=== PATIENT | male | born 1950 | race Caucasian/White ===

== ENCOUNTER 2016-11-16 10:30 | Inpatient (IN) | payer MEDICARE ==
[2017-01-22] MEDS ORDERED: Sodium Chloride 0.9% 10 ML Syringe FLUSH PRN (07:00)
[2017-01-22] MEDS ORDERED: Lidocaine 1%/Sod Bicarbonate in NS 8.4% 1 ML Syringe PRN (07:00)
--- NOTE | 2017-01-22 07:40 | PCM.PREANE ---
Preanesthetic Assessment - Anesthesia/Transfusion/Family Hx Anesthesia History: Prior Anesthesia Without Reaction Family History of Anesthesia Reaction: No Transfusion History: No Prior Transfusion(s) Type of Transfusion Reactions: Reports: Unknown - Review of Systems General: No Symptoms Pulmonary: Other (quit smoking 2014, uses smokelss tobacco, last today at 0700) Cardiovascular: No Symptoms Gastrointestinal: No Symptoms Neurological: No Symptoms Other: Reports: None (drinks 5-6 beers per day) - Physical Assessment NPO Status Date: 01/21/17 NPO Status Time: 18:00 Pulse: 74 O2 Sat by Pulse Oximetry: 94 Respiratory Rate: 16 Blood Pressure: 180/87 Temperature: 35.9 C Height: 1.63 m Weight: 63 kg ASA Class: 2 Mental Status: Alert & Oriented x3 Airway Class: Mallampati = 2 Dentition: Reports: Edentulous, Caries (2 teeth lower left, very decayed patient states that they are tight) Thyro-Mental Finger Breadths: 3 Mouth Opening Finger Breadths: 3 ROM/Head Extension: Full Lungs: Clear to Auscultation, Wheezing (wheezing heard initially left upper lobe , resolved on second assessment, will order nebulizer) Cardiovascular: Regular Rate, Regular Rhythm - Lab Values: Laboratory Last Values MRSA (PCR) Negative 01/17/17 15:35 - Allergies Allergies/Adverse Reactions: Allergies Allergy/AdvReac Type Severity Reaction Status Date / Time No Known Allergies Allergy Verified 01/19/17 10:35 - Blood Blood Available: No Product(s) Available: None - Anesthesia Plan Beta Ketan: Metoprolol Med Last Dose Date: 01/22/17 Med Last Dose Time: 04:00 - Acknowledgements Anesthesia Type Planned: Spinal Pt an Appropriate Candidate for the Planned Anesthesia: Yes Alternatives and Risks of Anesthesia Discussed w Pt/Guardian: Yes Pt/Guardian Understands and Agrees with Anesthesia Plan: Yes PreAnesthesia Questionnaire HEENT History: Reports: Impaired Vision, Other (See Below) Other HEENT History: wears glasses Cardiovascular History: Reports: Hypertension Respiratory History: Reports: None Gastrointestinal History: Reports: None Genitourinary History: Reports: None 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 Musculoskeletal History: Reports: None Neurological History: Reports: None Psychiatric History: Reports: None Endocrine/Metabolic History: Reports: None Hematologic History: Reports: None Immunologic History: Reports: None Oncologic (Cancer) History: Reports: None Dermatologic History: Reports: None - Past Surgical History Head Surgeries/Procedures: Reports: None Respiratory Surgical History: Reports: None GI Surgical History: Reports: None Female Surgical History: Reports: None Endocrine Surgical History: Reports: None Neurological Surgical History: Reports: None Musculoskeletal Surgical History: Reports: Other (See Below) Other Musculoskeletal Surgeries/Procedures:: L hip fracture with pinning, R arm fracture with pins Oncologic Surgical History: Reports: None Dermatological Surgical History: Reports: None - SUBSTANCE USE Smoking Status *Q: Former Smoker Days Per Week of Alcohol Use: 7 Number of Drinks Per Day: 6 Total Drinks Per Week: 42 Recreational Drug Use History: No - HOME MEDS Home Medications: Home Meds Metoprolol Succinate 100 mg PO DAILY 01/19/17 [History] amLODIPine [Norvasc] 5 mg PO DAILY 01/19/17 [History] - CURRENT (IN HOUSE) MEDS Current Meds: Current Medications Morphine Sulfate 8 mg/Epinephrine HCl 0.3 mg/Cefuroxime Sodium 750 mg/Ketorolac Tromethamine 30 mg/Sodium Chloride 27.9 ml 0 mg .XX ONETIME ONE Stop: 01/22/17 08:46 Lactated Ringer's (Ringers, Lactated) 1,000 mls @ 125 mls/hr IV ASDIRECTED ANABELL Stop: 01/22/17 23:00 Lidocaine/Sodium Bicarbonate (Buffered Lidocaine 1% In Ns 8.4%) 0.25 ml .XX ONETIME PRN PRN Reason: Prior to IV Start Stop: 01/22/17 18:00 Sodium Chloride (Saline Flush) 10 ml FLUSH ASDIRECTED PRN PRN Reason: Keep Vein Open Stop: 01/23/17 18:00 Discontinued Medications Bupivacaine HCl (Marcaine 0.25%) Confirm Administered Dose 30 ml .ROUTE .STK- MED ONE Stop: 01/22/17 07:23 Cefazolin Sodium (Ancef) Confirm Administered Dose 2 gm .ROUTE .STK-MED ONE Stop: 01/22/17 07:23 Iodine (Iodine 2% Mild Tincture) Confirm Administered Dose 30 ml .ROUTE .STK- MED ONE Stop: 01/22/17 07:23 Tranexamic Acid (Cyklokapron) Confirm Administered Dose 1,000 mg .ROUTE .STK- MED ONE Stop: 01/22/17 07:23
[2017-01-22] MEDS ORDERED: Albuterol 0.042% 1.25 MG/3 ML Neb Soln NEB ONE (07:48)
[2017-01-22] MEDS ORDERED: Midazolam 1 MG/ML 2 ML SDV ONE (08:00)
[2017-01-22] MEDS ORDERED: fentaNYL 250 MCG/5 ML SDV ONE (08:00)
[2017-01-22] MEDS: Lactated Ringers 1,000 ML IV SCH ×2 (08:00→11:16)
[2017-01-22] MEDS ORDERED: Propofol 200 MG/20 ML SDV ONE ×3 (08:00→10:19)
[2017-01-22] MEDS ORDERED: ceFAZolin 1 GM Vial ONE (08:00)
[2017-01-22] MEDS ORDERED: fentaNYL 100 MCG/2 ML SDV ONE (08:10)
[2017-01-22] MEDS ORDERED: Morphine PF 10 MG/10 ML SDV ONE (08:12)
[2017-01-22] MEDS ORDERED: Lactated Ringers 1,000 ML ONE ×2 (09:58→11:14)
[2017-01-22] MEDS: Bupivacaine 0.25% 30 ML SDV ONE ×2 (10:14→10:48)
[2017-01-22] MEDS: ceFAZolin 1 GM Vial ONE ×2 (10:15→10:44)
[2017-01-22] MEDS: Iodine/Sodium Iodide 2% Tincture 30 ML Bottle ONE ×2 (10:15→10:37)
[2017-01-22] MEDS: Morphine 8 MG, EPINEPHrine 0.3 MG, Cefuroxime 750 MG, Ketorolac 30 MG, Sodium Chloride ... ONE ×10 (10:16→10:46)
[2017-01-22] MEDS ORDERED: fentaNYL 100 MCG/2 ML SDV IVPUSH PRN (10:23)
[2017-01-22] MEDS ORDERED: Ondansetron 4 MG/2 ML SDV IVPUSH PRN (10:23)
--- NOTE | 2017-01-22 10:43 | PCM.OPNOTE ---
[id number] hip arthroplasty with deep hardware removal Pre Op Diagnosis: left hip osteoarthrosis status post previous left hip fracture Post-Op Diagnosis: Same Anesthesia Technique: Local, MAC, Spinal Primary Surgeon: Chaparro Lopez Anesthesia Provider: Dorene Tyler Technical Director: Bindu Jo Technical Director: Kellen Cervantes Complications: None Condition: Good
[2017-01-22] MEDS ORDERED: Sennosides 8.6 MG Tab PO PRN (11:00)
[2017-01-22] MEDS ORDERED: Bisacodyl 5 MG Tab PO PRN (11:00)
[2017-01-22] MEDS ORDERED: HYDROmorphone 0.5 MG/0.5 ML Syringe IVPUSH PRN (11:00)
[2017-01-22] MEDS ORDERED: Magnesium Hydroxide 400 MG/5 ML Susp 30 ML Cup PO PRN (11:00)
[2017-01-22] MEDS ORDERED: Morphine 2 MG/ML Syringe IVPUSH PRN (11:00)
[2017-01-22] MEDS ORDERED: Naloxone 0.4 MG/ML SDV IVPUSH PRN (11:00)
--- NOTE | 2017-01-22 11:27 | PCM.POSTAN ---
POST ANESTHESIA ASSESSMENT - MENTAL STATUS Mental Status: Alert, Oriented - VITAL SIGNS Pulse Rate: 59 SaO2: 98 Resp Rate: 16 Blood Pressure: 136/74 Temperature: 97.4 C - RESPIRATORY Respiratory Status: Respiratory Rate WNL, Airway Patent, O2 Saturation Stable, Supplemental Oxygen - CARDIOVASCULAR CV Status: Pulse Rate WNL, Blood Pressure Stable - GASTROINTESTINAL GI Status: No Symptoms - PAIN Pain Score: 0 - POST OP HYDRATION Hydration Status: Adequate & Stable
--- NOTE | 2017-01-22 11:42 | CR ---
Pelvis and left hip: AP view of the pelvis was obtained as well as lateral view of the left hip. Comparison: No previous study. Recently placed left hip prosthesis is seen. Components are aligned. Soft tissue air is noted from the surgical procedure. Joint space within the right hip is maintained. Bony structures are osteopenic. Impression: 1. Satisfactory appearance of recently placed left hip prosthesis. Diagnostic code #2
--- NOTE | 2017-01-22 12:31 | PCM.CONS ---
H&P History of Present Illness - General Date of Service: 01/22/17 Admit Problem/Dx: Admission Diagnosis/Problem Admission Diagnosis/Problem Osteoarthritis of hip Source of Information: Patient, Old Records, Provider, RN Notes Reviewed History Limitations: Reports: Physical Impairment - History of Present Illness Initial Comments - Free Text/Narative: This is a 66-year-old, white male, with past medical history of HTN, Hx/o Left Hip Fracture Status Post Surgical Pinning, Chronic ETOH Use, Chronic Tobacco Product Use (He chews) and Osteopenia who underwent left hip hardware removal and left total knee arthroplasty post operative day zero. Patient is doing relatively well. Currently, his pain is controlled. He denies any acute issues. Medicine was consulted for postoperative care. Left Hip Pain Score (Numeric/FACES): 5 - Related Data Allergies/Adverse Reactions: Allergies Allergy/AdvReac Type Severity Reaction Status Date / Time No Known Allergies Allergy Verified 01/22/17 08:08 Home Medications: Home Meds Metoprolol Succinate 100 mg PO DAILY 01/19/17 [History] amLODIPine [Norvasc] 5 mg PO DAILY 01/19/17 [History] Past Medical History HEENT History: Reports: Impaired Vision, Other (See Below) Other HEENT History: wears glasses Cardiovascular History: Reports: Hypertension Respiratory History: Reports: None Gastrointestinal History: Reports: None Genitourinary History: Reports: None 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 Musculoskeletal History: Reports: None Neurological History: Reports: None Psychiatric History: Reports: None Endocrine/Metabolic History: Reports: None Hematologic History: Reports: None Immunologic History: Reports: None Oncologic (Cancer) History: Reports: None Dermatologic History: Reports: None - Infectious Disease History Infectious Disease History: Reports: None - Past Surgical History Head Surgeries/Procedures: Reports: None HEENT Surgical History: Reports: None Cardiovascular Surgical History: Reports: None Respiratory Surgical History: Reports: None GI Surgical History: Reports: None Endocrine Surgical History: Reports: None Neurological Surgical History: Reports: None Musculoskeletal Surgical History: Reports: Other (See Below) Other Musculoskeletal Surgeries/Procedures:: L hip fracture with pinning, R arm fracture with pins Oncologic Surgical History: Reports: None Dermatological Surgical History: Reports: None Social & Family History - Tobacco Use Smoking Status *Q: Former Smoker Used Tobacco, but Quit: Yes Month Tobacco Last Used: 2014 Tobacco Use Comment: Patient last used chewing tobacco this morning at 0630. SENDY Catherine aware Second Hand Smoke Exposure: No - Caffeine Use Caffeine Use: Reports: Coffee, Soda - Alcohol Use Days Per Week of Alcohol Use: 7 Number of Drinks Per Day: 6 Total Drinks Per Week: 42 - Recreational Drug Use Recreational Drug Use: No H&P Review of Systems - Review of Systems: Review Of Systems: See Below General: Denies: Fever, Chills, Malaise, Weakness, Fatigue HEENT: Reports: No Symptoms Pulmonary: Denies: Shortness of Breath Cardiovascular: Denies: Chest Pain, Dyspnea on Exertion, Lightheadedness Gastrointestinal: Denies: Abdominal Pain, Decreased Appetite, Nausea, Vomiting Genitourinary: Reports: No Symptoms Musculoskeletal: Reports: No Symptoms, Neck Pain Skin: Denies: Cyanosis, Erythema, Wound Psychiatric: Denies: Depression, Anxiety, Hallucinations Neurological: Reports: Pre-Existing Deficit, Difficulty Walking, Gait Disturbance. Denies: Confusion, Weakness Hematologic/Lymphatic: Reports: No Symptoms Immunologic: Reports: No Symptoms Exam - Exam Exam: See Below - Vital Signs Vital Signs: Last Vital Signs Temp 36.2 C 01/22/17 12:12 Pulse 59 L 01/22/17 12:12 Resp 11 L 01/22/17 12:12 BP 130/69 01/22/17 12:12 Pulse Ox 91 L 01/22/17 12:12 Weight: 62.777 kg - Exam General: Alert, Oriented, Cooperative, Mild Distress HEENT: Conjunctiva Clear, EACs Clear, EOMI, Hearing Intact, Mucosa Moist & Silex , Nares Patent, Normal Nasal Septum, Posterior Pharynx Clear, Pupils Equal, Pupils Reactive, TMs Clear, Other (Poor Dentition) Neck: Supple, Trachea Midline, +2 Carotid Pulse wo Bruit Lungs: Clear to Auscultation, Normal Respiratory Effort Cardiovascular: Regular Rate, Regular Rhythm GI/Abdominal Exam: Normal Bowel Sounds, Soft, Non-Tender, No Organomegaly, No Distention, No Abnormal Bruit, No Mass (Male) Exam: Other (Indwelling thomas catheter) Rectal (Males) Exam: Deferred Back Exam: Normal Inspection, Decreased Range of Motion Extremities: Normal Inspection, Non-Tender, No Pedal Edema, Normal Capillary Refill, Other (limited due to abduction wedge). No: Normal Range of Motion Peripheral Pulses: 2+: Posterior Tibial (L), Posterior Tibial (R), Dorsalis Pedis (L), Dorsalis Pedis (R) Skin: Warm, Dry, Intact Neuro Extensive - Mental Status: Oriented x3, Normal Cognition, Memory Intact Neuro Extensive - Motor, Sensory, Reflexes: CN II-XII Intact (Limited due to current status), Abnormal Gait Psychiatric: Alert, Normal Affect, Normal Mood - Patient Data Lab Results Last 24 hrs: Laboratory Results - last 24 hr 01/22/17 Range/Units 07:50 Blood Type O POSITIVE Gel Antibody Screen Negative Consult PN Assessment/Plan POD#: 0 Procedures: Procedures DXA BONE DENSITY AXIAL (11/29/16) MR-STAPH DNA AMP PROBE (11/29/16) Problem List Initiated/Reviewed/Updated: Yes Plan: Assessment: Acute: Post-Operative Care State - Stable - Continue to monitor for hemodynamic instability S/p Removal of Hardware and Left Total Knee Arthroplasty - Stable - DVT and Pain Management as per primary team Hx/o Chronic Pain From Left Hip Hardware S/p Removal and TKA - Pain Management as per primary team Chronic: HTN Chronic ETOH Use, drinks 4-5 beers a day Tobacco Product Use, he chews Osteopenia Plan: He is clinically stable Routine AM labs Monitor for alcohol withdrawal, no need for prophylaxis at this time Nicotine Patch 21 mg daily Continue home meds PT/OT consult IS q2 awake Thank you for the opportunity to participate in the management of this patient Requesting Provider: Dr. Lopez Date Consult Requested: 01/22/17 Reason for Consult: Post-Operative Care Patient History Reviewed: Yes Admission H&P Reviewed: Yes Consult Result/Summary: Stable
--- NOTE | 2017-01-22 13:22 | OR ---
DATE OF OPERATION: 01/22/2017 SURGEON: Chaparro Lopez MD OPERATION PERFORMED: Conversion to left total hip arthroplasty status post left hip surgery with deep hardware removal. PREOPERATIVE DIAGNOSIS: Left hip osteoarthrosis status post previous left hip fracture. POSTOPERATIVE DIAGNOSIS: Left hip osteoarthrosis status post previous left hip fracture. ANESTHESIA: Local MAC with spinal. ANESTHESIA PROVIDER: Dr. Dorene Tyler ASSISTANTS: Bindu Jo PA-C and Kellen Cervantes LPN. ESTIMATED BLOOD LOSS: 250 mL. COMPLICATIONS: None. CONDITION: Stable. IMPLANTS: 1. Hannah size 52-mm Tritanium solid hemispherical cup. 2. Size 4 Accolade II Hannah stem. 3. Size D MDM components with 22.2 mm metal head +3. DESCRIPTION OF PROCEDURE: The patient was identified in the preop holding area. Proper site was marked and identified by the surgeon. The patient was taken back to the operating theater where after adequate anesthesia, the patient was placed in a right lateral decubitus position. All bony prominences were well padded. Pegs were well padded. The patient's gluteal fold was parallel to the floor. At this time, left hip was then sterilely prepped and draped in the usual sterile fashion. OR time-out was performed. The patient received 2 g of Ancef. Standard posterior incision was then made, taken down to the IT band and gluteal fascia. This was incised along the incisional length. There was noted to be a large amount of scar tissue where the previous 6.5 cannulated screws were. They were easily identified and with use of a 6.5 screwdriver, we were able to easily remove all 4 of the cannulated screws. The greater trochanter was found to be intact. At this time, short external rotators were identified and they were severely scarred secondary to the previous surgery. Takedown of the piriformis tendon and the short external rotators were then done all the way down to the level of lesser trochanter. The abductors were protected at this time. Hip was then dislocated. Neck cut guide was then placed and neck cut was completed. The patient's neck cut was found to be adequate. At this time, anterior and posterior acetabular retractors were placed. The patient was noted to have significant tight inferior capsule and removal of the pulvinar along with the anterior and posterior labrum was then done and completed at this time. Starting with a 46 reamer, I was able to ream up to a 52 for a 52 mm cup. The trial was found to have adequate fixation. A 52-mm Thurman titanium acetabular cup was then impacted into place in roughly 40 degrees of abduction and 10 to 20 degrees of anteversion. The D MDM liner was then impacted into place. Attention was turned to the femur. The femoral elevator was placed. A box chisel was used out laterally and starter awl was placed down the canal. The canal was noted to have significant overgrowth of the very robust calcar. At this time starting with a 0 broach, I was able to broach up to a size 4 which was found to be rotationally and vertically stable. At this time, the hip was reduced. The leg lengths were found to be a minor amount short, so at this time we did +3 and was found to have adequate baptist of leg length as well as offset. At this time, size 4 Accolade II stem was impacted into place along with the MDM components construct on the back table with a +3 neck sleeve. At this time, these were impacted onto the stem and the hip was then relocated, was found to be stable throughout range of motion with near equal leg lengths. 1 L dilute Betadine solution was then irrigated through the hip along with 3 L of pulse lavage irrigation with Ancef. Periarticular injection was then completed. One #5 Ethibond suture was used for closure of the capsule and short external rotators. A #2 barbed suture was used for closure of the IT band and gluteal fascia. A 2-0 Vicryl was used subcutaneously and a Prineo was used for the skin. The patient tolerated the procedure well and sent to PACU in stable condition. MMBARRETT /[id number]
[2017-01-22] MEDS: ceFAZolin 2 GM in Premix Bag 1 BAG IV SCH ×2 (16:31→23:21)
[2017-01-22] MEDS ORDERED: Metoprolol Tartrate 5 MG/5 ML SDV IVPUSH PRN (16:50)
[2017-01-22] MEDS ORDERED: hydrALAZINE 20 MG/ML SDV IVPUSH PRN (16:50)
[2017-01-22] MEDS ORDERED: LORazepam 2 MG/ML MDV IVPUSH PRN ×2 (16:50)
[2017-01-22] MEDS ORDERED: Nicotine 21 MG/24 Hr Patch TRDERM ONE (16:51)
[2017-01-22] MEDS ORDERED: Famotidine 20 MG Tab PO SCH (21:00)
[2017-01-22] MEDS: Acetaminophen/oxyCODONE 325-5 MG Tab PO PRN (21:05)
[2017-01-22] MEDS: Docusate Sodium 100 MG Cap PO SCH (21:07)
[2017-01-23] MEDS: Acetaminophen/oxyCODONE 325-5 MG Tab PO PRN ×3 (03:41→13:49)
[2017-01-23] MEDS ORDERED: Multivitamins,Therapeutic Tab PO SCH (07:00)
[2017-01-23] MEDS: ceFAZolin 2 GM in Premix Bag 1 BAG IV SCH (08:31)
[2017-01-23] MEDS: Docusate Sodium 100 MG Cap PO SCH (08:36)
[2017-01-23] MEDS ORDERED: amLODIPine 5 MG Tab PO SCH (09:00)
[2017-01-23] MEDS ORDERED: Metoprolol Succinate 50 MG Tab.ER PO SCH (09:00)
[2017-01-23] MEDS ORDERED: Nicotine 21 MG/24 Hr Patch TRDERM SCH (09:00)
[2017-01-23] MEDS ORDERED: REMOVE NICOTINE TRDERM SCH (09:00)
[2017-01-23] MEDS ORDERED: Aspirin 325 MG Tab.EC PO SCH (09:00)
[2017-01-23] MEDS ORDERED: Famotidine 20 MG Tab PO SCH (09:00)
[2017-01-23] MEDS ORDERED: Potassium Chloride/Sodium Chloride Tab PO SCH (09:45)
--- NOTE | 2017-01-23 09:47 | PCM.CONSN ---
- General Info Date of Service: 01/23/17 Admission Dx/Problem (Free Text): Admission Diagnosis/Problem Admission Diagnosis/Problem Osteoarthritis of hip POD #[address] Lopez Doing well, pain controlled. Tolerating diet without nausea or concerns. Denies alcohol withdrawl symptoms this morning. No dizziness or confusion Is anxious for discharge home later today Functional Status: Reports: Pain Controlled, Tolerating Diet, Ambulating, Urinating. Denies: New Symptoms - Review of Systems General: Reports: No Symptoms HEENT: Reports: No Symptoms Pulmonary: Reports: No Symptoms Cardiovascular: Reports: No Symptoms Gastrointestinal: Reports: No Symptoms Genitourinary: Reports: No Symptoms Musculoskeletal: Reports: Leg Pain Skin: Reports: No Symptoms Neurological: Reports: No Symptoms Psychiatric: Reports: No Symptoms - Patient Data Vitals - Most Recent: Last Vital Signs Temp 98.9 F 01/23/17 09:00 Pulse 78 01/23/17 09:00 Resp 16 01/23/17 09:00 BP 121/99 H 01/23/17 09:00 Pulse Ox 93 L 01/23/17 09:00 Weight - Most Recent: 138 lb 6.4 oz I&O - Last 24 Hours: Intake & Output 01/22/17 01/23/17 01/23/17 22:59 06:59 14:59 Intake Total 1360 250 Output Total 455 0 Balance 905 250 Lab Results Last 24 Hours: Laboratory Results - last 24 hr 01/22/17 01/23/17 01/23/17 Range/Units 07:50 06:00 06:00 WBC 10.64 H (4.23-9.07) K/mm3 RBC 3.57 L (4.63-6.08) M/mm3 Hgb 11.3 L (13.7-17.5) gm/L Hct 33.3 L (40.1-51.0) % MCV 93.3 H (79.0-92.2) fl MCH 31.7 (25.7-32.2) pg MCHC 33.9 (32.2-35.5) g/dl RDW Std Deviation 47.3 H (35.1-43.9) fL Plt Count 340 H (163-337) K/mm3 MPV 10.3 (9.4-12.3) fl Neut % (Auto) 63.0 (34.0-67.9) % Lymph % (Auto) 24.6 (21.8-53.1) % [place] % (Auto) 9.8 (5.3-12.2) % Eos % (Auto) 2.1 (0.8-7.0) Baso % (Auto) 0.2 (0.1-1.2) % Neut # (Auto) 6.71 H (1.78-5.38) K/mm3 Lymph # (Auto) 2.62 (1.32-3.57) K/mm3 [place] # (Auto) 1.04 H (0.30-0.82) K/mm3 Eos # (Auto) 0.22 (0.04-0.54) K/mm3 Baso # (Auto) 0.02 (0.01-0.08) K/mm3 Sodium 129 L (136-145) mEq/L Potassium 4.3 (3.5-5.1) mEq/L Chloride 93 L (98-107) mEq/L Carbon Dioxide 31 (21-32) mEq/L Anion Gap 9.3 (5-15) BUN 20 H (7-18) mg/dL Creatinine 1.5 H (0.7-1.3) mg/dL Est Cr Clr Drug Dosing 40.01 mL/min Estimated GFR (MDRD) 47 (>60) mL/min BUN/Creatinine Ratio 13.3 L (14-18) Glucose 115 (80-115) mg/dL Calcium 9.0 (8.5-10.1) mg/dL Total Bilirubin 1.5 H (0.2-1.0) mg/dL AST 92 H (15-37) U/L ALT 43 (16-63) U/L Alkaline Phosphatase 131 H (46-116) U/L Total Protein 7.2 (6.4-8.2) g/dl Albumin 3.2 L (3.4-5.0) g/dl Globulin 4.0 gm/dL Albumin/Globulin Ratio 0.8 L (1-2) Blood Type O POSITIVE Gel Antibody Screen Negative Med Orders - Current: Current Medications Amlodipine Besylate (Norvasc) 5 mg PO DAILY [facility] Last Admin: 01/23/17 08:36 Dose: 5 mg Aspirin (Ecotrin) 325 mg PO BID [facility] Last Admin: 01/23/17 08:36 Dose: 325 mg Bisacodyl (Dulcolax) 5 mg PO DAILY PRN PRN Reason: Constipation Docusate Sodium (Colace) 100 mg PO BID [facility] Last Admin: 01/23/17 08:36 Dose: 100 mg Famotidine (Pepcid) 20 mg PO DAILY [facility] Last Admin: 01/23/17 08:32 Dose: 20 mg Hydralazine HCl (Apresoline) 20 mg IVPUSH Q4H PRN PRN Reason: Hypertension Lorazepam (Ativan) 2 mg IVPUSH Q4H PRN PRN Reason: Seizures Lorazepam (Ativan) 0 mg IVPUSH Q4H PRN; Protocol PRN Reason: Withdrawal Symptoms Magnesium Hydroxide (Milk Of Magnesia) 30 ml PO BID PRN PRN Reason: Constipation Metoprolol Succinate (Toprol Xl) 100 mg PO DAILY [facility] Last Admin: 01/23/17 08:32 Dose: 100 mg Metoprolol Tartrate (Lopressor) 5 mg IVPUSH Q4H PRN PRN Reason: Tachycardia Miscellaneous Information (Remove Patch) 0 ea TRDERM DAILY [facility] Last Admin: 01/23/17 08:36 Dose: 1 ea Morphine Sulfate (Morphine) 2 mg IVPUSH Q2H PRN PRN Reason: Breakthrough Pain Multivitamins (Thera) 1 each PO WITHBREAKFAST [facility] Last Admin: 01/23/17 06:00 Dose: 1 each Nicotine (Habitrol) 21 mg TRDERM DAILY [facility] Last Admin: 01/23/17 08:32 Dose: 21 mg Oral Electrolytes (Thermotabs) 1 each PO TID [facility] Oxycodone/Acetaminophen (Percocet 325-5 Mg) 1 - 2 tab PO Q4H PRN PRN Reason: Pain Last Admin: 01/23/17 08:56 Dose: 2 tab Senna (Senna) 8.6 mg PO BID PRN PRN Reason: Constipation Sodium Chloride (Saline Flush) 10 ml FLUSH ASDIRECTED PRN PRN Reason: Keep Vein Open Stop: 01/23/17 18:00 Discontinued Medications Albuterol (Proventil Neb Soln) 1.25 mg NEB ONETIME ONE Stop: 01/22/17 07:49 Last Admin: 01/22/17 08:19 Dose: 1.25 mg Bupivacaine HCl (Marcaine 0.25%) Confirm Administered Dose 30 ml .ROUTE .STK- MED ONE Stop: 01/22/17 07:23 Last Admin: 01/22/17 10:48 Dose: 30 ml Cefazolin Sodium (Ancef) Confirm Administered Dose 2 gm .ROUTE .STK-MED ONE Stop: 01/22/17 07:23 Last Admin: 01/22/17 10:44 Dose: 2 gm Cefazolin Sodium (Ancef) Confirm Administered Dose 2 gm .ROUTE .STK-MED ONE Stop: 01/22/17 08:01 Morphine Sulfate 8 mg/Epinephrine HCl 0.3 mg/Cefuroxime Sodium 750 mg/Ketorolac Tromethamine 30 mg/Sodium Chloride 27.9 ml 0 mg .XX ONETIME ONE Stop: 01/22/17 08:46 Last Admin: 01/22/17 10:46 Dose: 788.3 mg Famotidine (Pepcid) 20 mg PO BID [facility] Last Admin: 01/22/17 21:07 Dose: 20 mg Fentanyl (Sublimaze) Confirm Administered Dose 250 mcg .ROUTE .STK-MED ONE Stop: 01/22/17 08:01 Fentanyl (Sublimaze) Confirm Administered Dose 100 mcg .ROUTE .STK-MED ONE Stop: 01/22/17 08:11 Fentanyl (Sublimaze) 50 mcg IVPUSH Q5M PRN PRN Reason: pain Stop: 01/22/17 13:00 Hydromorphone HCl (Dilaudid) 0.5 mg IVPUSH Q15M PRN PRN Reason: Pain (severe 7-10) Stop: 01/22/17 11:16 Lactated Ringer's (Ringers, Lactated) 1,000 mls @ 125 mls/hr IV ASDIRECTED [facility] Stop: 01/22/17 23:00 Last Admin: 01/22/17 11:16 Dose: 125 mls/hr Cefazolin Sodium/Dextrose 2 gm (/ Premix) 50 mls @ 100 mls/hr IV Q8H [facility] Stop: 01/23/17 08:29 Last Admin: 01/23/17 08:31 Dose: 100 mls/hr Lactated Ringer's (Ringers, Lactated) Confirm Administered Dose 1,000 mls @ as directed .ROUTE .STK-MED ONE Stop: 01/22/17 09:59 Lactated Ringer's (Ringers, Lactated) Confirm Administered Dose 1,000 mls @ as directed .ROUTE .STK-MED ONE Stop: 01/22/17 11:15 Iodine (Iodine 2% Mild Tincture) Confirm Administered Dose 30 ml .ROUTE .STK- MED ONE Stop: 01/22/17 07:23 Last Admin: 01/22/17 10:37 Dose: 18 ml Lidocaine/Sodium Bicarbonate (Buffered Lidocaine 1% In Ns 8.4%) 0.25 ml .XX ONETIME PRN PRN Reason: Prior to IV Start Stop: 01/22/17 18:00 Last Admin: 01/22/17 08:00 Dose: 0.25 ml Midazolam HCl (Versed 1 Mg/Ml) Confirm Administered Dose 2 mg .ROUTE .STK-MED ONE Stop: 01/22/17 08:01 Morphine Sulfate (Duramorph Pf) Confirm Administered Dose 10 mg .ROUTE .STK-MED ONE Stop: 01/22/17 08:13 Naloxone HCl (Narcan) 0.1 mg IVPUSH Q5M PRN PRN Reason: Oversedation Stop: 01/22/17 11:16 Nicotine (Habitrol) 21 mg TRDERM ONETIME ONE Stop: 01/22/17 16:52 Last Admin: 01/22/17 17:17 Dose: 21 mg Ondansetron HCl (Zofran) 4 mg IVPUSH ONETIME PRN PRN Reason: Nausea/Vomiting Stop: 01/22/17 13:00 Propofol (Diprivan 20 Ml) Confirm Administered Dose 200 mg .ROUTE .STK-MED ONE Stop: 01/22/17 08:01 Propofol (Diprivan 20 Ml) Confirm Administered Dose 200 mg .ROUTE .STK-MED ONE Stop: 01/22/17 09:29 Propofol (Diprivan 20 Ml) Confirm Administered Dose 200 mg .ROUTE .STK-MED ONE Stop: 01/22/17 10:20 Tranexamic Acid (Cyklokapron) Confirm Administered Dose 1,000 mg .ROUTE .STK- MED ONE Stop: 01/22/17 07:23 Last Admin: 01/22/17 10:52 Dose: 1,000 mg - Exam Quality Assessment: DVT Prophylaxis General: Alert, Oriented, Cooperative, No Acute Distress HEENT: Pupils Equal, Pupils Reactive, EOMI, Mucous Membr. Moist/[place] Neck: Supple Lungs: Clear to Auscultation, Normal Respiratory Effort, Decreased Breath Sounds (bases), Wheezing (exp. scattered) Cardiovascular: Regular Rate, Regular Rhythm GI/Abdominal Exam: Normal Bowel Sounds, Soft, Non-Tender (Male) Exam: Deferred Extremities: Normal Inspection, No Pedal Edema Peripheral Pulses: 1+: Dorsalis Pedis (L), Dorsalis Pedis (R) Skin: Warm Wound/Incisions: Dressing Dry and Intact (to lt hip; distally CMS + ) Neurological: No New Focal Deficit Psy/Mental Status: Alert, Normal Affect, Normal Mood Consult PN Assessment/Plan POD#: 1 Procedures: Procedures DXA BONE DENSITY AXIAL (11/29/16) MR-STAPH DNA AMP PROBE (11/29/16) (1) S/P total hip arthroplasty SNOMED Code(s): 461299576159, 118649009545 Code(s): Z96.649 - PRESENCE OF UNSPECIFIED ARTIFICIAL HIP JOINT Priority: High Current Visit: Yes Qualifiers: Laterality: right Qualified Code(s): Z96.641 - Presence of right artificial hip joint (2) Osteoarthritis SNOMED Code(s): 665050932 Code(s): M19.90 - UNSPECIFIED OSTEOARTHRITIS, UNSPECIFIED SITE Priority: High Current Visit: Yes Qualifiers: Osteoarthritis location: hip Osteoarthritis type: unspecified Laterality : left Qualified Code(s): M16.12 - Unilateral primary osteoarthritis, left hip (3) HTN (hypertension) SNOMED Code(s): 50555677 Code(s): I10 - ESSENTIAL (PRIMARY) HYPERTENSION Priority: Medium Current Visit: No Qualifiers: Hypertension type: essential hypertension Qualified Code(s): I10 - Essential (primary) hypertension (4) Alcohol use disorder SNOMED Code(s): 43055810, 39703006 Code(s): F10.99 - ALCOHOL USE, UNSP WITH UNSPECIFIED ALCOHOL-INDUCED DISORDER Priority: High Current Visit: Yes (5) Tobacco use disorder SNOMED Code(s): 533337319, 023630322 Code(s): F17.200 - NICOTINE DEPENDENCE, UNSPECIFIED, UNCOMPLICATED Priority : Medium Current Visit: Yes (6) Osteopenia SNOMED Code(s): 823210612 Code(s): M85.80 - OTH DISRD OF BONE DENSITY AND STRUCTURE, UNSPECIFIED SITE Priority: Medium Current Visit: Yes Qualifiers: Osteopenia location: unspecified Qualified Code(s): M85.80 - Other specified disorders of bone density and structure, unspecified site (7) Renal insufficiency SNOMED Code(s): 042030663, 728995350 Code(s): N28.9 - DISORDER OF KIDNEY AND URETER, UNSPECIFIED Priority: Medium Current Visit: Yes (8) Elevated liver enzymes SNOMED Code(s): 162095720, 774690271 Code(s): R74.8 - ABNORMAL LEVELS OF OTHER SERUM ENZYMES Priority: Medium Current Visit: Yes Problem List Initiated/Reviewed/Updated: Yes My Orders Last 24 Hours: My Active Orders 01/23/17 09:45 Potassium Chloride/NaCl [Thermotabs] 1 each PO TID Plan: POD #1- Lt DIRK--revision, Dr. Lopez -Pain management and DVT prohylax per Primary Team- Ortho -PT/OT -IS/RT -Hgb stable at 11.3 Hyponatremia- 129 -Thermotabs TID today -Salt food Renal insufficiency- creatinine 1.5 today; stable from preop labs -Push fluids, alcohol avoidance -Recommend f/up with PCP as outpatient Elevated LFT's -Likely from chronic alcohol use, alcohol avoidance/cessation -Recommend f/up with PCP for recheck and further eval after discharge Chronic conditions -HTN- resume home meds- stable -Tobacco use- nicotine patch- recommend cessation -Alcohol use- recommend cessation- avoid using alcohol in conjunction with narcotic pain medications -Osteopenia Other: GI prophylax CM/SW for assist with DC planning- plans dc home today with family: OK for DC home today from Hospitalist standoint. Patient is Full Code Status.
--- NOTE | 2017-01-23 10:30 | PCM48HPAN ---
Post Anesthesia Note - EVALUATION WITHIN 48HRS OF ANESTHETIC Vital Signs in Normal Range: Yes Patient Participated in Evaluation: Yes Respiratory Function Stable: Yes (continues with pulse ox. ) Airway Patent: Yes Cardiovascular Function Stable: Yes Hydration Status Stable: Yes Pain Control Satisfactory: Yes Nausea and Vomiting Control Satisfactory: Yes Mental Status Recovered: Yes
[2017-01-23 12:09] VITALS: BP 116/78
--- NOTE | 2017-01-23 12:40 | PCM.SURGPN ---
- General Info Date of Service: 01/23/17 POD#: 1 Functional Status: Reports: Pain Controlled, Tolerating Diet, Ambulating, Urinating, Other (The pt feels prepared for discharge to home.) - Review of Systems General: Denies: Fever, Chills Musculoskeletal: Reports: Other (The pt progressed well with P.T.) - Patient Data Vitals - Most Recent: Last Vital Signs Temp 97.5 F 01/23/17 11:33 Pulse 73 01/23/17 12:03 Resp 16 01/23/17 12:00 BP 116/78 01/23/17 11:33 Pulse Ox 95 01/23/17 12:03 Weight - Most Recent: 138 lb 6.4 oz I&O - Last 24 Hours: Intake & Output 01/22/17 01/23/17 01/23/17 22:59 06:59 14:59 Intake Total 1360 250 120 Output Total 455 0 Balance 905 250 120 Lab Results Last 24 Hrs: Laboratory Results - last 24 hr 01/23/17 01/23/17 Range/Units 06:00 06:00 WBC 10.64 H (4.23-9.07) K/mm3 RBC 3.57 L (4.63-6.08) M/mm3 Hgb 11.3 L (13.7-17.5) gm/L Hct 33.3 L (40.1-51.0) % MCV 93.3 H (79.0-92.2) fl MCH 31.7 (25.7-32.2) pg MCHC 33.9 (32.2-35.5) g/dl RDW Std Deviation 47.3 H (35.1-43.9) fL Plt Count 340 H (163-337) K/mm3 MPV 10.3 (9.4-12.3) fl Neut % (Auto) 63.0 (34.0-67.9) % Lymph % (Auto) 24.6 (21.8-53.1) % [place] % (Auto) 9.8 (5.3-12.2) % Eos % (Auto) 2.1 (0.8-7.0) Baso % (Auto) 0.2 (0.1-1.2) % Neut # (Auto) 6.71 H (1.78-5.38) K/mm3 Lymph # (Auto) 2.62 (1.32-3.57) K/mm3 [place] # (Auto) 1.04 H (0.30-0.82) K/mm3 Eos # (Auto) 0.22 (0.04-0.54) K/mm3 Baso # (Auto) 0.02 (0.01-0.08) K/mm3 Sodium 129 L (136-145) mEq/L Potassium 4.3 (3.5-5.1) mEq/L Chloride 93 L (98-107) mEq/L Carbon Dioxide 31 (21-32) mEq/L Anion Gap 9.3 (5-15) BUN 20 H (7-18) mg/dL Creatinine 1.5 H (0.7-1.3) mg/dL Est Cr Clr Drug Dosing 40.01 mL/min Estimated GFR (MDRD) 47 (>60) mL/min BUN/Creatinine Ratio 13.3 L (14-18) Glucose 115 (80-115) mg/dL Calcium 9.0 (8.5-10.1) mg/dL Total Bilirubin 1.5 H (0.2-1.0) mg/dL AST 92 H (15-37) U/L ALT 43 (16-63) U/L Alkaline Phosphatase 131 H (46-116) U/L Total Protein 7.2 (6.4-8.2) g/dl Albumin 3.2 L (3.4-5.0) g/dl Globulin 4.0 gm/dL Albumin/Globulin Ratio 0.8 L (1-2) Med Orders - Current: Current Medications Amlodipine Besylate (Norvasc) 5 mg PO DAILY [facility] Last Admin: 01/23/17 08:36 Dose: 5 mg Aspirin (Ecotrin) 325 mg PO BID [facility] Last Admin: 01/23/17 08:36 Dose: 325 mg Bisacodyl (Dulcolax) 5 mg PO DAILY PRN PRN Reason: Constipation Docusate Sodium (Colace) 100 mg PO BID [facility] Last Admin: 01/23/17 08:36 Dose: 100 mg Famotidine (Pepcid) 20 mg PO DAILY [facility] Last Admin: 01/23/17 08:32 Dose: 20 mg Hydralazine HCl (Apresoline) 20 mg IVPUSH Q4H PRN PRN Reason: Hypertension Lorazepam (Ativan) 2 mg IVPUSH Q4H PRN PRN Reason: Seizures Lorazepam (Ativan) 0 mg IVPUSH Q4H PRN; Protocol PRN Reason: Withdrawal Symptoms Magnesium Hydroxide (Milk Of Magnesia) 30 ml PO BID PRN PRN Reason: Constipation Metoprolol Succinate (Toprol Xl) 100 mg PO DAILY [facility] Last Admin: 01/23/17 08:32 Dose: 100 mg Metoprolol Tartrate (Lopressor) 5 mg IVPUSH Q4H PRN PRN Reason: Tachycardia Miscellaneous Information (Remove Patch) 0 ea TRDERM DAILY [facility] Last Admin: 01/23/17 08:36 Dose: 1 ea Morphine Sulfate (Morphine) 2 mg IVPUSH Q2H PRN PRN Reason: Breakthrough Pain Multivitamins (Thera) 1 each PO WITHBREAKFAST [facility] Last Admin: 01/23/17 06:00 Dose: 1 each Nicotine (Habitrol) 21 mg TRDERM DAILY [facility] Last Admin: 01/23/17 08:32 Dose: 21 mg Oral Electrolytes (Thermotabs) 1 each PO TID [facility] Last Admin: 01/23/17 10:31 Dose: 1 each Oxycodone/Acetaminophen (Percocet 325-5 Mg) 1 - 2 tab PO Q4H PRN PRN Reason: Pain Last Admin: 01/23/17 08:56 Dose: 2 tab Senna (Senna) 8.6 mg PO BID PRN PRN Reason: Constipation Sodium Chloride (Saline Flush) 10 ml FLUSH ASDIRECTED PRN PRN Reason: Keep Vein Open Stop: 01/23/17 18:00 Discontinued Medications Albuterol (Proventil Neb Soln) 1.25 mg NEB ONETIME ONE Stop: 01/22/17 07:49 Last Admin: 01/22/17 08:19 Dose: 1.25 mg Bupivacaine HCl (Marcaine 0.25%) Confirm Administered Dose 30 ml .ROUTE .STK- MED ONE Stop: 01/22/17 07:23 Last Admin: 01/22/17 10:48 Dose: 30 ml Cefazolin Sodium (Ancef) Confirm Administered Dose 2 gm .ROUTE .STK-MED ONE Stop: 01/22/17 07:23 Last Admin: 01/22/17 10:44 Dose: 2 gm Cefazolin Sodium (Ancef) Confirm Administered Dose 2 gm .ROUTE .STK-MED ONE Stop: 01/22/17 08:01 Morphine Sulfate 8 mg/Epinephrine HCl 0.3 mg/Cefuroxime Sodium 750 mg/Ketorolac Tromethamine 30 mg/Sodium Chloride 27.9 ml 0 mg .XX ONETIME ONE Stop: 01/22/17 08:46 Last Admin: 01/22/17 10:46 Dose: 788.3 mg Famotidine (Pepcid) 20 mg PO BID [facility] Last Admin: 01/22/17 21:07 Dose: 20 mg Fentanyl (Sublimaze) Confirm Administered Dose 250 mcg .ROUTE .STK-MED ONE Stop: 01/22/17 08:01 Fentanyl (Sublimaze) Confirm Administered Dose 100 mcg .ROUTE .STK-MED ONE Stop: 01/22/17 08:11 Fentanyl (Sublimaze) 50 mcg IVPUSH Q5M PRN PRN Reason: pain Stop: 01/22/17 13:00 Hydromorphone HCl (Dilaudid) 0.5 mg IVPUSH Q15M PRN PRN Reason: Pain (severe 7-10) Stop: 01/22/17 11:16 Lactated Ringer's (Ringers, Lactated) 1,000 mls @ 125 mls/hr IV ASDIRECTED [facility] Stop: 01/22/17 23:00 Last Admin: 01/22/17 11:16 Dose: 125 mls/hr Cefazolin Sodium/Dextrose 2 gm (/ Premix) 50 mls @ 100 mls/hr IV Q8H [facility] Stop: 01/23/17 08:29 Last Admin: 01/23/17 08:31 Dose: 100 mls/hr Lactated Ringer's (Ringers, Lactated) Confirm Administered Dose 1,000 mls @ as directed .ROUTE .STK-MED ONE Stop: 01/22/17 09:59 Lactated Ringer's (Ringers, Lactated) Confirm Administered Dose 1,000 mls @ as directed .ROUTE .STK-MED ONE Stop: 01/22/17 11:15 Iodine (Iodine 2% Mild Tincture) Confirm Administered Dose 30 ml .ROUTE .STK- MED ONE Stop: 01/22/17 07:23 Last Admin: 01/22/17 10:37 Dose: 18 ml Lidocaine/Sodium Bicarbonate (Buffered Lidocaine 1% In Ns 8.4%) 0.25 ml .XX ONETIME PRN PRN Reason: Prior to IV Start Stop: 01/22/17 18:00 Last Admin: 01/22/17 08:00 Dose: 0.25 ml Midazolam HCl (Versed 1 Mg/Ml) Confirm Administered Dose 2 mg .ROUTE .STK-MED ONE Stop: 01/22/17 08:01 Morphine Sulfate (Duramorph Pf) Confirm Administered Dose 10 mg .ROUTE .STK-MED ONE Stop: 01/22/17 08:13 Naloxone HCl (Narcan) 0.1 mg IVPUSH Q5M PRN PRN Reason: Oversedation Stop: 01/22/17 11:16 Nicotine (Habitrol) 21 mg TRDERM ONETIME ONE Stop: 01/22/17 16:52 Last Admin: 01/22/17 17:17 Dose: 21 mg Ondansetron HCl (Zofran) 4 mg IVPUSH ONETIME PRN PRN Reason: Nausea/Vomiting Stop: 01/22/17 13:00 Propofol (Diprivan 20 Ml) Confirm Administered Dose 200 mg .ROUTE .STK-MED ONE Stop: 01/22/17 08:01 Propofol (Diprivan 20 Ml) Confirm Administered Dose 200 mg .ROUTE .STK-MED ONE Stop: 01/22/17 09:29 Propofol (Diprivan 20 Ml) Confirm Administered Dose 200 mg .ROUTE .STK-MED ONE Stop: 01/22/17 10:20 Tranexamic Acid (Cyklokapron) Confirm Administered Dose 1,000 mg .ROUTE .STK- MED ONE Stop: 01/22/17 07:23 Last Admin: 01/22/17 10:52 Dose: 1,000 mg - Exam Wound/Incisions: Dressing Dry and Intact General: Alert, Cooperative, No Acute Distress Lungs: Normal Respiratory Effort Extremities: Other (NVS intact for BLE. [place]'s negative. Left thigh soft. ) - Problem List Review Problem List Initiated/Reviewed/Updated: Yes - My Orders Last 24 Hours: Active Orders 24 hr Category Date Time Status Ready for Discharge [RC] PER UNIT ROUTINE Care 01/23/17 12:34 Active Regular Diet [DIET] Diet 01/22/17 Dinner Active Aspirin [Ecotrin] Med 01/23/17 09:00 Active 325 mg PO BID Docusate Sodium [Colace] Med 01/22/17 21:00 Active 100 mg PO BID Famotidine [Pepcid] Med 01/23/17 09:00 Active 20 mg PO DAILY LORazepam [Ativan] Med 01/22/17 16:50 Active 2 mg IVPUSH Q4H PRN LORazepam [Ativan] Med 01/22/17 16:50 Active See Protocol IVPUSH Q4H PRN Metoprolol Succinate [Toprol XL] Med 01/23/17 09:00 Active 100 mg PO DAILY Metoprolol Tartrate [Lopressor] Med 01/22/17 16:50 Active 5 mg IVPUSH Q4H PRN Multivitamins,Therapeutic [Thera] Med 01/23/17 07:00 Active 1 each PO WITHBREAKFAST Nicotine [Habitrol] Med 01/23/17 09:00 Active 21 mg TRDERM DAILY Potassium Chloride/NaCl [Thermotabs] Med 01/23/17 09:45 Active 1 each PO TID Remove Patch Med 01/23/17 09:00 Active 0 ea TRDERM DAILY amLODIPine [Norvasc] Med 01/23/17 09:00 Active 5 mg PO DAILY hydrALAZINE [Apresoline] Med 01/22/17 16:50 Active 20 mg IVPUSH Q4H PRN Medication Orders Amlodipine Besylate (Norvasc) 5 mg PO DAILY [facility] Last Admin: 01/23/17 08:36 Dose: 5 mg Aspirin (Ecotrin) 325 mg PO BID [facility] Last Admin: 01/23/17 08:36 Dose: 325 mg Bisacodyl (Dulcolax) 5 mg PO DAILY PRN PRN Reason: Constipation Docusate Sodium (Colace) 100 mg PO BID [facility] Last Admin: 01/23/17 08:36 Dose: 100 mg Admin: 01/22/17 21:07 Dose: 100 mg Famotidine (Pepcid) 20 mg PO DAILY [facility] Last Admin: 01/23/17 08:32 Dose: 20 mg Hydralazine HCl (Apresoline) 20 mg IVPUSH Q4H PRN PRN Reason: Hypertension Lorazepam (Ativan) 2 mg IVPUSH Q4H PRN PRN Reason: Seizures Lorazepam (Ativan) 0 mg IVPUSH Q4H PRN; Protocol PRN Reason: Withdrawal Symptoms Magnesium Hydroxide (Milk Of Magnesia) 30 ml PO BID PRN PRN Reason: Constipation Metoprolol Succinate (Toprol Xl) 100 mg PO DAILY [facility] Last Admin: 01/23/17 08:32 Dose: 100 mg Metoprolol Tartrate (Lopressor) 5 mg IVPUSH Q4H PRN PRN Reason: Tachycardia Miscellaneous Information (Remove Patch) 0 ea TRDERM DAILY [facility] Last Admin: 01/23/17 08:36 Dose: 1 ea Morphine Sulfate (Morphine) 2 mg IVPUSH Q2H PRN PRN Reason: Breakthrough Pain Multivitamins (Thera) 1 each PO WITHBREAKFAST [facility] Last Admin: 01/23/17 06:00 Dose: 1 each Nicotine (Habitrol) 21 mg TRDERM DAILY [facility] Last Admin: 01/23/17 08:32 Dose: 21 mg Oral Electrolytes (Thermotabs) 1 each PO TID [facility] Last Admin: 01/23/17 10:31 Dose: 1 each Oxycodone/Acetaminophen (Percocet 325-5 Mg) 1 - 2 tab PO Q4H PRN PRN Reason: Pain Last Admin: 01/23/17 08:56 Dose: 2 tab Admin: 01/23/17 03:41 Dose: 2 tab Admin: 01/22/17 21:05 Dose: 2 tab Senna (Senna) 8.6 mg PO BID PRN PRN Reason: Constipation Sodium Chloride (Saline Flush) 10 ml FLUSH ASDIRECTED PRN PRN Reason: Keep Vein Open Stop: 01/23/17 18:00 - Assessment Assessment (Free Text/Narrative):: POD#1 - removal of hardware at left hip and DIRK - Plan Plan (Free Text/Narrative):: 1. Hgb 11.3. 2. ASA 325mg PO BID. SCDs, TEDs. 3. DIRK precautions. 4. Discharge to home today. Inpatient therapy goals have been met and the pt has been cleared medically. The pt's case was discussed with Dr. Lopez.
--- NOTE | 2017-01-24 12:22 | PCM.DCSUM1 ---
Discharge Summary - Hospital Course Brief History: Ehsan is a 66 yo male who underwent left hip hardware removal with DIRK with Dr. Lopez on 01-22-2017 . The procedure was completed under spinal anesthesia with sedation. The pt tolerated the procedure well and was admitted to the Medical-Surgical Unit. Medical management was provided by the Hospitalist service and the pt's Hospital course was uneventful. The pt's Hgb on POD#1 was 113. On POD#1, 325mg BID was initiated for VTE prophylaxis. SCDs and TEDs were also ordered. A Mepilex dressing was placed at the incision site at the time of surgery and remained clean and dry. The pt participated in P.T. and O.T. and progressed well. He followed the DIRK precautions. The pt was allowed to WBAT and used a FWW for mobility. On POD#1, the pt was deemed appropriate to discharge to home with his family. - Discharge Data Discharge Date: 01/23/17 Discharge Disposition: Home, Self-Care 01 Condition: Good - Patient Summary/Data Operative Procedure(s) Performed: left total hip arthroplasty with deep hardware removal Consults: Consultations 01/22/17 09:04 Consult to Case Management [CONS] Routine Consult to Physician [CONS] Routine OT Evaluation and Treatment [CONS] Routine 01/22/17 09:08 PT Evaluation and Treatment [CONS] Routine - Patient Instructions Diet: Usual Diet as Tolerated Activity: Apply Ice, As Tolerated, Elevate Extremity, Full Weight Bearing Activity, Other: DIRK precautions. Driving: Do Not Drive Showering/Bathing: May Shower Wound/Incision Care: Keep Operative Site/Wound Site Clean and Dry, Do NOT Change Dressing Notify Provider of: Fever, Increased Pain, Swelling and Redness, Drainage, Nausea and/or Vomiting Other/Special Instructions: Please get up and moving around every hour while awake. This helps to prevent blood clots. Please use your walker and have help with mobility as needed. Please take a 325mg ASPIRIN TWICE DAILY. This also helps to prevent blood clots. Follow the hip precautions that were instructed in the Hospital. You may schedule for P.T. Use the pain medication as needed. The medication may cause drowsiness and constipation. Contact your primary care provider for instructions if you are constipated. You may use a stool softener like docusate sodium or Colace 100mg twice daily and/or a laxative like Miralax daily for constipation. Wear the SALVATORE hose during the day and you may remove these at night. Place ice to the hip often. Place a towel between your skin and the blue pad. Schedule an appointment with your primary care provider for 'routine post-op care'. Call the Clinic with questions or concerns - [phone]. - Discharge Plan Prescriptions/Med Rec: Acetaminophen/oxyCODONE [Percocet 325-5 MG] 1 - 2 tab PO Q4H PRN #60 tablet PRN Reason: Pain Aspirin [Ecotrin] 325 mg PO BID #84 tab.ec Famotidine [Pepcid] 20 mg PO DAILY #30 tablet Multivitamins,Therapeutic [Thera] 1 each PO WITHBREAKFAST #30 tablet Nicotine [Habitrol] 21 mg TRDERM DAILY #30 patch Potassium Chloride/NaCl [Thermotabs] 1 each PO TID #15 tablet Home Medications: Home Meds Metoprolol Succinate 100 mg PO DAILY 01/19/17 [History] amLODIPine [Norvasc] 5 mg PO DAILY 01/19/17 [History] Acetaminophen/oxyCODONE [Percocet 325-5 MG] 1 - 2 tab PO Q4H PRN #60 tablet 07/11 [Rx] Aspirin [Ecotrin] 325 mg PO BID #84 tab.ec 01/23/17 [Rx] Famotidine [Pepcid] 20 mg PO DAILY #30 tablet 01/23/17 [Rx] Multivitamins,Therapeutic [Thera] 1 each PO WITHBREAKFAST #30 tablet 01/23/17 [ Rx] Nicotine [Habitrol] 21 mg TRDERM DAILY #30 patch 01/23/17 [Rx] Potassium Chloride/NaCl [Thermotabs] 1 each PO TID #15 tablet 01/23/17 [Rx] Patient Handouts: Total Hip Replacement, [id number], Alcohol Abuse and Nutrition, Pain Medicine Instructions, Loim-ma-Leqk, Smokeless Tobacco Use, Total Hip Replacement, Care After, [id number]-[id number], Alcohol Withdrawal, Easy-to- Read Referrals: Karie Mckeon NP [Ordering Only Provider] - 01/31/17 1:15 pm (Please follow- up with your preferred primary care provider, Imelda Mckeon, on January 31 at 1:15pm. ) Bindu Jo PA-C [Physician [facility]] - 01/30/17 2:15 pm (Please follow-up with Dr. Jo on January 30 at 215pm. Then proceed to follow-up again with Dr. Lopez on February 06 at 215pm. These are your previously scheduled appointments. ) - Patient Data Vitals - Most Recent: Last Vital Signs Temp 97.5 F 01/23/17 11:33 Pulse 83 01/23/17 15:00 Resp 16 01/23/17 14:00 BP 116/78 01/23/17 11:33 Pulse Ox 96 01/23/17 15:00 Weight - Most Recent: 138 lb 6.4 oz I&O - Last 24 hours: Intake & Output 01/23/17 01/24/17 01/24/17 22:59 06:59 14:59 Intake Total 240 Balance 240 Med Orders - Current: Current Medications Discontinued Medications Albuterol (Proventil Neb Soln) 1.25 mg NEB ONETIME ONE Stop: 01/22/17 07:49 Last Admin: 01/22/17 08:19 Dose: 1.25 mg Amlodipine Besylate (Norvasc) 5 mg PO DAILY [facility] Last Admin: 01/23/17 08:36 Dose: 5 mg Aspirin (Ecotrin) 325 mg PO BID [facility] Last Admin: 01/23/17 08:36 Dose: 325 mg Bisacodyl (Dulcolax) 5 mg PO DAILY PRN PRN Reason: Constipation Bupivacaine HCl (Marcaine 0.25%) Confirm Administered Dose 30 ml .ROUTE .STK- MED ONE Stop: 01/22/17 07:23 Last Admin: 01/22/17 10:48 Dose: 30 ml Cefazolin Sodium (Ancef) Confirm Administered Dose 2 gm .ROUTE .STK-MED ONE Stop: 01/22/17 07:23 Last Admin: 01/22/17 10:44 Dose: 2 gm Cefazolin Sodium (Ancef) Confirm Administered Dose 2 gm .ROUTE .STK-MED ONE Stop: 01/22/17 08:01 Morphine Sulfate 8 mg/Epinephrine HCl 0.3 mg/Cefuroxime Sodium 750 mg/Ketorolac Tromethamine 30 mg/Sodium Chloride 27.9 ml 0 mg .XX ONETIME ONE Stop: 01/22/17 08:46 Last Admin: 01/22/17 10:46 Dose: 788.3 mg Docusate Sodium (Colace) 100 mg PO BID [facility] Last Admin: 01/23/17 08:36 Dose: 100 mg Famotidine (Pepcid) 20 mg PO BID [facility] Last Admin: 01/22/17 21:07 Dose: 20 mg Famotidine (Pepcid) 20 mg PO DAILY [facility] Last Admin: 01/23/17 08:32 Dose: 20 mg Fentanyl (Sublimaze) Confirm Administered Dose 250 mcg .ROUTE .STK-MED ONE Stop: 01/22/17 08:01 Fentanyl (Sublimaze) Confirm Administered Dose 100 mcg .ROUTE .STK-MED ONE Stop: 01/22/17 08:11 Fentanyl (Sublimaze) 50 mcg IVPUSH Q5M PRN PRN Reason: pain Stop: 01/22/17 13:00 Hydralazine HCl (Apresoline) 20 mg IVPUSH Q4H PRN PRN Reason: Hypertension Hydromorphone HCl (Dilaudid) 0.5 mg IVPUSH Q15M PRN PRN Reason: Pain (severe 7-10) Stop: 01/22/17 11:16 Lactated Ringer's (Ringers, Lactated) 1,000 mls @ 125 mls/hr IV ASDIRECTED [facility] Stop: 01/22/17 23:00 Last Admin: 01/22/17 11:16 Dose: 125 mls/hr Cefazolin Sodium/Dextrose 2 gm (/ Premix) 50 mls @ 100 mls/hr IV Q8H [facility] Stop: 01/23/17 08:29 Last Admin: 01/23/17 08:31 Dose: 100 mls/hr Lactated Ringer's (Ringers, Lactated) Confirm Administered Dose 1,000 mls @ as directed .ROUTE .STK-MED ONE Stop: 01/22/17 09:59 Lactated Ringer's (Ringers, Lactated) Confirm Administered Dose 1,000 mls @ as directed .ROUTE .STK-MED ONE Stop: 01/22/17 11:15 Iodine (Iodine 2% Mild Tincture) Confirm Administered Dose 30 ml .ROUTE .STK- MED ONE Stop: 01/22/17 07:23 Last Admin: 01/22/17 10:37 Dose: 18 ml Lidocaine/Sodium Bicarbonate (Buffered Lidocaine 1% In Ns 8.4%) 0.25 ml .XX ONETIME PRN PRN Reason: Prior to IV Start Stop: 01/22/17 18:00 Last Admin: 01/22/17 08:00 Dose: 0.25 ml Lorazepam (Ativan) 2 mg IVPUSH Q4H PRN PRN Reason: Seizures Lorazepam (Ativan) 0 mg IVPUSH Q4H PRN; Protocol PRN Reason: Withdrawal Symptoms Magnesium Hydroxide (Milk Of Magnesia) 30 ml PO BID PRN PRN Reason: Constipation Metoprolol Succinate (Toprol Xl) 100 mg PO DAILY [facility] Last Admin: 01/23/17 08:32 Dose: 100 mg Metoprolol Tartrate (Lopressor) 5 mg IVPUSH Q4H PRN PRN Reason: Tachycardia Midazolam HCl (Versed 1 Mg/Ml) Confirm Administered Dose 2 mg .ROUTE .STK-MED ONE Stop: 01/22/17 08:01 Miscellaneous Information (Remove Patch) 0 ea TRDERM DAILY [facility] Last Admin: 01/23/17 08:36 Dose: 1 ea Morphine Sulfate (Duramorph Pf) Confirm Administered Dose 10 mg .ROUTE .STK-MED ONE Stop: 01/22/17 08:13 Morphine Sulfate (Morphine) 2 mg IVPUSH Q2H PRN PRN Reason: Breakthrough Pain Multivitamins (Thera) 1 each PO WITHBREAKFAST [facility] Last Admin: 01/23/17 06:00 Dose: 1 each Naloxone HCl (Narcan) 0.1 mg IVPUSH Q5M PRN PRN Reason: Oversedation Stop: 01/22/17 11:16 Nicotine (Habitrol) 21 mg TRDERM ONETIME ONE Stop: 01/22/17 16:52 Last Admin: 01/22/17 17:17 Dose: 21 mg Nicotine (Habitrol) 21 mg TRDERM DAILY [facility] Last Admin: 01/23/17 08:32 Dose: 21 mg Ondansetron HCl (Zofran) 4 mg IVPUSH ONETIME PRN PRN Reason: Nausea/Vomiting Stop: 01/22/17 13:00 Oral Electrolytes (Thermotabs) 1 each PO TID [facility] Last Admin: 01/23/17 10:31 Dose: 1 each Oxycodone/Acetaminophen (Percocet 325-5 Mg) 1 - 2 tab PO Q4H PRN PRN Reason: Pain Last Admin: 01/23/17 13:49 Dose: 2 tab Propofol (Diprivan 20 Ml) Confirm Administered Dose 200 mg .ROUTE .STK-MED ONE Stop: 01/22/17 08:01 Propofol (Diprivan 20 Ml) Confirm Administered Dose 200 mg .ROUTE .STK-MED ONE Stop: 01/22/17 09:29 Propofol (Diprivan 20 Ml) Confirm Administered Dose 200 mg .ROUTE .STK-MED ONE Stop: 01/22/17 10:20 Senna (Senna) 8.6 mg PO BID PRN PRN Reason: Constipation Sodium Chloride (Saline Flush) 10 ml FLUSH ASDIRECTED PRN PRN Reason: Keep Vein Open Stop: 01/23/17 18:00 Tranexamic Acid (Cyklokapron) Confirm Administered Dose 1,000 mg .ROUTE .STK- MED ONE Stop: 01/22/17 07:23 Last Admin: 01/22/17 10:52 Dose: 1,000 mg *Q Meaningful Use (DIS) - VTE *Q VTE Criteria *Q: - Stroke *Q Stroke Criteria *Q: - AMI *Q AMI Criteria *Q:
== END 2017-01-23 15:20 | disposition home or self-care (01) | DRG 470 ==
LOC: EDBD → EDSTATUS 12-11 09:15 → MERGE 12-11 09:15 → JD.MS 01-22 07:09
PROVIDERS: ADMIT Orthopaedic Surgery; ATTEND Orthopaedic Surgery
PROC: 0SRB0JA Replacement of Left Hip Joint with Synthetic Substitute, Uncemented, Open Approach (ICD-10-PCS; principal; 2017-01-22)
PROC: 0YPB0YZ Removal of Other Device from Left Lower Extremity, Open Approach (ICD-10-PCS; 2017-01-22)
DX: M16.12 Unilateral primary osteoarthritis, left hip (principal); F10.99 Alcohol use, unspecified with unspecified alcohol-induced disorder; E87.1 Hypo-osmolality and hyponatremia; I10 Essential (primary) hypertension; F17.200 Nicotine dependence, unspecified, uncomplicated; M85.80 Other specified disorders of bone density and structure, unspecified site; N28.9 Disorder of kidney and ureter, unspecified; R74.8 Abnormal levels of other serum enzymes; Z87.81 Personal history of (healed) traumatic fracture
CPT/HCPCS: 01214; 36415; 73501-26-LT; 73501-LT; 80053; 85025; 86850; 86900; 86901; 87641; 93005; 94664; 94762; 97110-GP; 97116-GP; 97162-GP; 97166-GO; 97535-GO; A9270-GY; C1776; J0171; J0690; J0697; J1885; J2250; J2270; J2704; J3010; J3490; J7120